=== PATIENT | male | born 1955 | race Caucasian/White ===

== ENCOUNTER 2020-05-30 23:07 | Inpatient (IN) | payer OTHER ==
[~2020-05-30] VITALS: Ht 185.4 cm; Wt 59.0 kg
[2020-05-30] MEDS ORDERED: PLEASE ENTER ALLERGIES MC SCH (23:30)
[2020-05-30] MEDS: MIDAZOLAM HCL 50 MG in SODIUM CHLORIDE 0.9% 40 ML IV PRN (23:35)
--- NOTE | 2020-05-30 23:42 | NUR ---
pt has hx of etoh abuse and was altereed and combative at [facility], [place] where the sedated pt with et tube and sent pt here. PT ON VENT AND WAS BEEN PUSHES OF KETAMIN PER TRANSPORT STAFF.
--- NOTE | 2020-05-30 23:51 | NUR ---
PT REPORT GIVEN TO HENNA ANTOINE
[2020-05-30 23:55] LABS: MEAN CORPUSCULAR HEMOGLOBIN 33.7 pg (27.5-34.5); MEAN CORPUSCULAR HGB CONC 34.3 g/dL (33.2-36.2); MEAN PLATELET VOLUME 10.6 fL (7.4-10.4); PLATELET COUNT 153 x10^3/uL (130-400); RED BLOOD COUNT 3.84 x10^6/uL (4.38-5.82)
--- NOTE | 2020-05-30 23:59 | NUR ---
Pt remains, sedated, intubated, labs drawn and sent, hall draining, pt has exisiting oral gastric tube, clamped. Sinus tach no ectopy will continue to monitor.
--- NOTE | 2020-05-31 00:02 | NUR ---
MAP greater 60, semi t bird. Dr lacey made aware of b/p trends.
[2020-05-31 00:05] LABS: ALANINE AMINOTRANSFERASE 63 U/L (12-78); ALBUMIN 1.8 g/dL (3.4-5.0); ANION GAP 10 mmol/L (5-15); CALCIUM 7.1 mg/dL (8.5-10.1); CHLORIDE 104 mmol/L (98-107)
[2020-05-31 00:09] LABS: ALKALINE PHOSPHATASE 257 U/L (45-117); BILIRUBIN,TOTAL 0.9 mg/dL (0.2-1.0); CREATININE 0.71 mg/dL (0.7-1.3); TOTAL PROTEIN 5.3 g/dL (6.4-8.2)
--- NOTE | 2020-05-31 00:10 | NUR ---
daughter's phone number: [phone]
--- NOTE | 2020-05-31 00:15 | NUR ---
Lab called trop report 2.[address] lacey.
[2020-05-31 00:19] LABS: MD YES
[2020-05-31 00:23] LABS: BAND#(MANUAL) 1.92 x10^3/uL; BANDS%(MANUAL) 13 % (0-7); LYMPH#(MANUAL) 0.59 x10^3/uL (1-3.4); LYMPHS% (MANUAL) 4 % (22-44); MONOS#(MANUAL) 1.63 x10^3/uL (0.3-2.7); MONOS% (MANUAL) 11 % (2-9); REACTIVE LYMPHS # (MANUAL) 0.15 x10^3/uL (0-0); REACTIVE LYMPHS % (MANUAL) 1 % (0-0); SEG#(MANUAL) 10.51 x10^3/uL (1.8-6.8); SEGS% (MANUAL) 71 % (42-75)
[2020-05-31 00:25] LABS: PMNS WITH VACUOLES 1+
[2020-05-31 00:27] LABS: <PLATELET ESTIMATE> ADEQUATE; LARGE PLATELETS 1+
[2020-05-31] MEDS ORDERED: HEPARIN 25,000 UNITS/250ML PMX 250 ML ONE (00:30)
[2020-05-31] MEDS ORDERED: HEPARIN 5,000 UNITS/ML, 1ML IV ONE (00:30)
[2020-05-31] MEDS ORDERED: HEPARIN 25,000 UNITS/250ML PMX 250 ML IV PRN (00:30)
[2020-05-31] MEDS ORDERED: HEPARIN 5,000 UNITS/ML, 1ML ONE (00:30)
[2020-05-31] MEDS ORDERED: OMNIPAQUE 350 MG/ML, 75ML BOTTLE ONE (00:55)
[2020-05-31] MEDS ORDERED: NOREPINEPHRINE 8 MG in SODIUM CHLORIDE 0.9% 242 ML IV PRN ×2 (01:00→02:00)
[2020-05-31] MEDS ORDERED: PIPERACILLIN/TAZO/PMX 3.375GM 50 ML IVPB ONE (01:00)
[2020-05-31] MEDS ORDERED: VANCOMYCIN PER PHARMACY MC ONE (01:00)
[2020-05-31] MEDS ORDERED: VANCOMYCIN 1,500 MG in SODIUM CHLORIDE 0.9% 250 ML IV ONE (01:00)
[2020-05-31] MEDS: MIDAZOLAM HCL 50 MG in SODIUM CHLORIDE 0.9% 40 ML IV PRN ×3 (01:41→21:22)
--- NOTE | 2020-05-31 01:52 | NUR ---
0100: To CT with RT for CTA, bolus in CT with 2mg versed for movement. 0115: back from CT, pt b/p remains MAP around 55, placement of IJ CL by dr lacey. 0130: Pressors started to maintain MAP greater 65
[2020-05-31] MEDS ORDERED: VANCOMYCIN PER PHARMACY MC PRN (02:00)
[2020-05-31] MEDS ORDERED: THIAMINE 200 MG in SODIUM CHLORIDE 0.9% 50 ML IV ONE (02:00)
[2020-05-31] MEDS ORDERED: PHARMACY MAY ADJ FOR RENAL FX MC PRN (02:00)
[2020-05-31] MEDS ORDERED: LACTATED RINGERS 1,000 ML IV SCH ×2 (02:00→20:00)
--- NOTE | 2020-05-31 02:09 | NUR ---
TASK RN: PT RESTING ON GURNEY TOLERATING SEDATION WELL, DRIPS INFUSING WITHOUT DIFFICULTY AT THIS TIME, ROBISON CONTINUES TO DRAIN DARK URINE.
[2020-05-31 02:22] LABS: INTERNATIONAL NORMALIZED RATIO 1.21 (0.93-1.1); PROTHROMBIN TIME 12.8 Seconds (9.6-11.5)
--- NOTE | 2020-05-31 02:45 | NUR ---
OGT to suction, coffee ground dc from tube, placed to int suction.
--- NOTE | 2020-05-31 02:55 | NUR ---
Back from break, OGT with coffee ground emesis, call to dr stout will stop heparin. Report to HENNA [place] pt and all belongings tx to CCU.
[2020-05-31] MEDS ORDERED: PHARMACY MAY ADJ FOR RENAL FX MC SCH (03:00)
[2020-05-31] MEDS ORDERED: ONDANSETRON 2MG/ML, 2ML IV PRN (03:00)
[2020-05-31] MEDS ORDERED: PANTOPRAZOLE 80 MG in SODIUM CHLORIDE 0.9% 50 ML IV ONE (03:00)
[2020-05-31] MEDS ORDERED: FAMOTIDINE 20 MG/2 ML IV SCH (03:00)
[2020-05-31] MEDS ORDERED: LIDOCAINE-MPF 1%, 2ML ENDO PRN (03:00)
[2020-05-31] MEDS ORDERED: FENTANYL PF 100 MCG/2ML IVPush PRN (03:00)
[2020-05-31] MEDS ORDERED: PHARMACOKINETIC CONSULTATION MC ONE (03:30)
[2020-05-31] MEDS ORDERED: PHARMACOKINETIC MONITORING MC PRN (03:30)
[2020-05-31] MEDS: PANTOPRAZOLE 80 MG in SODIUM CHLORIDE 0.9% 100 ML IV SCH ×3 (03:44→23:26)
[2020-05-31] MEDS: PIPERACILLIN/TAZO/PMX 3.375GM 50 ML IV SCH ×4 (03:47→20:01)
[2020-05-31 05:14] LABS: ANION GAP 6 mmol/L (5-15); CALCIUM 7.3 mg/dL (8.5-10.1); CHLORIDE 107 mmol/L (98-107)
[2020-05-31 05:16] LABS: MEAN CORPUSCULAR HEMOGLOBIN 33.2 pg (27.5-34.5); MEAN CORPUSCULAR HGB CONC 33.2 g/dL (33.2-36.2); MEAN PLATELET VOLUME 10.7 fL (7.4-10.4); PLATELET COUNT 167 x10^3/uL (130-400); RED BLOOD COUNT 3.79 x10^6/uL (4.38-5.82); RED CELL DISTRIBUTION WIDTH 13.2 % (9.4-14.8)
[2020-05-31 05:19] LABS: CHOL/HDL RATIO 3.9; CHOLESTEROL, TOTAL 58 mg/dL (140-239); CREATININE 0.63 mg/dL (0.7-1.3); HDL CHOL % 26 % (26-37); HDL CHOLESTEROL (DIRECT) 15 mg/dL (40-60); LDL CHOLESTEROL,CALCULATED 16 mg/dL (54-169); LDL/HDL RATIO 1.1 (0.5-3.0); TRIGLYCERIDES 137 mg/dL (50-200); VLDL CHOLESTEROL 27 mg/dL (0-25)
[2020-05-31 05:56] LABS: MD YES
[2020-05-31 05:57] LABS: BAND#(MANUAL) 1.67 x10^3/uL; BANDS%(MANUAL) 11 % (0-7); LYMPH#(MANUAL) 0.61 x10^3/uL (1-3.4); LYMPHS% (MANUAL) 4 % (22-44); MONOS#(MANUAL) 1.22 x10^3/uL (0.3-2.7); MONOS% (MANUAL) 8 % (2-9); SEGS% (MANUAL) 77 % (42-75)
[2020-05-31 05:58] LABS: <PLATELET ESTIMATE> ADEQUATE; LARGE PLATELETS 1+
[2020-05-31 07:44] LABS: MICROSCOPIC INDICATED
[2020-05-31 07:51] LABS: AMPHETAMINE SCREEN, URINE Negative (Negative); BARBITURATE SCREEN, URINE Negative (Negative); BENZODIAZEPINE SCREEN, URINE Positive (Negative); CANNABINOID SCREEN, URINE Negative (Negative); COCAINE SCREEN, URINE Negative (Negative); METHADONE SCREEN, URINE Negative (Negative); OPIATE SCREEN, URINE Negative (Negative)
[2020-05-31] MEDS: THIAMINE 100MG TABLET PO/NG SCH (07:51)
[2020-05-31] MEDS ORDERED: ACETAMINOPHEN 650 MG/20.3 ML UDC ONE (10:21)
--- NOTE | 2020-05-31 13:07 | NUR ---
If tube feed recommendation needed: recommend Vital AF goal:55 ml/hr off propofol.rec. slow advancement Addendum: 05/31/20 at [address] Amended: Links added.
[2020-05-31] MEDS ORDERED: VANCOMYCIN 1,200 MG in SODIUM CHLORIDE 0.9% 250 ML IV SCH (14:00)
[2020-05-31] MEDS ORDERED: LORazepam 2 MG/ML, 1ML ONE (16:53)
[2020-05-31] MEDS ORDERED: LORazepam 2 MG/ML, 1ML IVPush ONE (17:00)
[2020-05-31] MEDS: PROPOFOL 100 ML IV PRN (17:19)
[2020-05-31] MEDS: ACETAMINOPHEN 325 MG TABLET PO PRN (21:08)
[2020-06-01] MEDS ORDERED: LACTATED RINGERS 1,000 ML IV SCH (02:00)
[2020-06-01] MEDS: PIPERACILLIN/TAZO/PMX 3.375GM 50 ML IV SCH ×4 (02:16→19:54)
[2020-06-01 04:23] LABS: MEAN CORPUSCULAR HEMOGLOBIN 33.2 pg (27.5-34.5); MEAN CORPUSCULAR HGB CONC 33.8 g/dL (33.2-36.2); MEAN PLATELET VOLUME 10.6 fL (7.4-10.4); PLATELET COUNT 148 x10^3/uL (130-400); RED BLOOD COUNT 3.73 x10^6/uL (4.38-5.82); RED CELL DISTRIBUTION WIDTH 13.5 % (9.4-14.8)
[2020-06-01 04:26] LABS: INTERNATIONAL NORMALIZED RATIO 1.16 (0.93-1.1); PROTHROMBIN TIME 12.3 Seconds (9.6-11.5)
[2020-06-01 04:36] LABS: ANION GAP 7 mmol/L (5-15); CALCIUM 7.7 mg/dL (8.5-10.1); CHLORIDE 107 mmol/L (98-107); CHOLESTEROL, TOTAL 68 mg/dL (140-239); CREATININE 0.47 mg/dL (0.7-1.3)
[2020-06-01 04:38] LABS: CHOL/HDL RATIO 5.7; HDL CHOL % 18 % (26-37); HDL CHOLESTEROL (DIRECT) 12 mg/dL (40-60); LDL CHOLESTEROL,CALCULATED 27 mg/dL (54-169); LDL/HDL RATIO 2.3 (0.5-3.0); TRIGLYCERIDES 146 mg/dL (50-200); VLDL CHOLESTEROL 29 mg/dL (0-25)
[2020-06-01 04:59] LABS: MD YES
[2020-06-01 05:02] LABS: BAND#(MANUAL) 1.13 x10^3/uL; BANDS%(MANUAL) 13 % (0-7); BASOS#(MANUAL) 0.09 x10^3/uL (0-0.1); BASOS% (MANUAL) 1 % (0-1); LYMPH#(MANUAL) 0.44 x10^3/uL (1-3.4); LYMPHS% (MANUAL) 5 % (22-44); MONOS#(MANUAL) 1.04 x10^3/uL (0.3-2.7); MONOS% (MANUAL) 12 % (2-9); SEGS% (MANUAL) 69 % (42-75)
[2020-06-01 05:05] LABS: <PLATELET ESTIMATE> ADEQUATE; LARGE PLATELETS 1+; PMNS WITH VACUOLES 1+
[2020-06-01] MEDS: MIDAZOLAM HCL 50 MG in SODIUM CHLORIDE 0.9% 40 ML IV PRN ×2 (06:22→18:13)
[2020-06-01] MEDS: POTASSIUM CHLORIDE 10% 40 MEQ/30 ML UDC PO SCH ×2 (07:54→19:54)
[2020-06-01] MEDS: THIAMINE 100MG TABLET PO/NG SCH (07:54)
[2020-06-01] MEDS: PANTOPRAZOLE 80 MG in SODIUM CHLORIDE 0.9% 100 ML IV SCH (09:29)
[2020-06-01] MEDS ORDERED: ENOXAPARIN 40 MG/0.4 ML SQ SCH (10:00)
[2020-06-01] MEDS: PROPOFOL 100 ML IV PRN (13:47)
[2020-06-01] MEDS: ACETAMINOPHEN 325 MG TABLET PO PRN ×2 (13:47→23:57)
[2020-06-01] MEDS ORDERED: PANTOPRAZOLE 40 MG IV IVPush SCH (21:00)
[2020-06-02] MEDS: PROPOFOL 100 ML IV PRN (01:45)
[2020-06-02] MEDS: PIPERACILLIN/TAZO/PMX 3.375GM 50 ML IV SCH ×4 (03:12→20:48)
[2020-06-02 03:28] LABS: BASOPHILS % (AUTO) 1 % (0-1); EOSINOPHILS % (AUTO) 0 % (1-7); LYMPHOCYTES % (AUTO) 14 % (22-44); MEAN CORPUSCULAR HEMOGLOBIN 33.5 pg (27.5-34.5); MEAN CORPUSCULAR HGB CONC 34.3 g/dL (33.2-36.2); MEAN PLATELET VOLUME 9.6 fL (7.4-10.4); MONOCYTES % (AUTO) 7 % (2-9); NEUTROPHILS % (AUTO) 78 % (42-75); PLATELET COUNT 107 x10^3/uL (130-400); RED BLOOD COUNT 3.53 x10^6/uL (4.38-5.82); RED CELL DISTRIBUTION WIDTH 13.1 % (9.4-14.8)
[2020-06-02 03:37] LABS: ALANINE AMINOTRANSFERASE 35 U/L (12-78); ALBUMIN 1.4 g/dL (3.4-5.0); ANION GAP 4 mmol/L (5-15); CALCIUM 7.9 mg/dL (8.5-10.1); CHLORIDE 107 mmol/L (98-107)
[2020-06-02 03:40] LABS: ALKALINE PHOSPHATASE 158 U/L (45-117); BILIRUBIN,TOTAL 0.4 mg/dL (0.2-1.0); CREATININE 0.56 mg/dL (0.7-1.3)
[2020-06-02 04:01] LABS: MD SCAN
[2020-06-02 04:17] LABS: BILIRUBIN, DIRECT 0.2 mg/dL (0.1-0.2); BILIRUBIN,INDIRECT 0.2 mg/dL (0.0-2.0); BILIRUBIN,TOTAL 0.4 mg/dL (0.2-1.0)
[2020-06-02] MEDS: THIAMINE 100MG TABLET PO/NG SCH (07:49)
[2020-06-02] MEDS: PANTOPRAZOLE 40 MG IV IVPush SCH ×2 (07:49→19:30)
[2020-06-02] MEDS ORDERED: HEPARIN 5,000 UNITS/ML, 1ML IV ONE (09:00)
[2020-06-02] MEDS: HEPARIN 25,000 UNITS/250ML PMX 250 ML IV PRN (10:02)
[2020-06-02] MEDS: LORazepam 2 MG/ML, 1ML IVPush PRN ×2 (12:33→19:30)
[2020-06-02] MEDS: HEPARIN 5,000 UNITS/ML, 1ML IV PRN ×2 (13:42→19:30)
[2020-06-02] MEDS: ACETAMINOPHEN 325 MG TABLET PO PRN (14:44)
[2020-06-03] MEDS: LORazepam 2 MG/ML, 1ML IVPush PRN (02:48)
[2020-06-03] MEDS: PIPERACILLIN/TAZO/PMX 3.375GM 50 ML IV SCH ×4 (02:50→22:21)
[2020-06-03 03:56] LABS: BASOPHILS % (AUTO) 1 % (0-1); EOSINOPHILS % (AUTO) 1 % (1-7); LYMPHOCYTES % (AUTO) 14 % (22-44); MEAN CORPUSCULAR HEMOGLOBIN 33.7 pg (27.5-34.5); MEAN CORPUSCULAR HGB CONC 34.3 g/dL (33.2-36.2); MEAN PLATELET VOLUME 11.4 fL (7.4-10.4); MONOCYTES % (AUTO) 7 % (2-9); NEUTROPHILS % (AUTO) 78 % (42-75); PLATELET COUNT 108 x10^3/uL (130-400); RED BLOOD COUNT 3.16 x10^6/uL (4.38-5.82); RED CELL DISTRIBUTION WIDTH 13.2 % (9.4-14.8)
[2020-06-03 04:06] LABS: BILIRUBIN, DIRECT 0.3 mg/dL (0.1-0.2)
[2020-06-03 04:08] LABS: BILIRUBIN,INDIRECT 0.6 mg/dL (0.0-2.0); BILIRUBIN,TOTAL 0.9 mg/dL (0.2-1.0)
[2020-06-03 04:25] LABS: MD SCAN
[2020-06-03 05:42] LABS: ALBUMIN 1.4 g/dL (3.4-5.0); ANION GAP 5 mmol/L (5-15); CALCIUM 7.8 mg/dL (8.5-10.1); CHLORIDE 107 mmol/L (98-107)
[2020-06-03 05:47] LABS: ALANINE AMINOTRANSFERASE 30 U/L (12-78); ALKALINE PHOSPHATASE 188 U/L (45-117); BILIRUBIN,TOTAL 0.6 mg/dL (0.2-1.0); CREATININE 0.49 mg/dL (0.7-1.3)
[2020-06-03] MEDS: HEPARIN 5,000 UNITS/ML, 1ML IV PRN ×3 (09:35→21:57)
[2020-06-03] MEDS: HEPARIN 25,000 UNITS/250ML PMX 250 ML IV PRN (09:36)
[2020-06-03] MEDS: PANTOPRAZOLE 40 MG IV IVPush SCH ×2 (09:38→21:40)
[2020-06-03] MEDS: POTASSIUM CHLORIDE 10% 40 MEQ/30 ML UDC PO SCH ×2 (09:38→21:39)
[2020-06-03] MEDS: THIAMINE 100MG TABLET PO/NG SCH (09:38)
[2020-06-03 18:01] VITALS: BP 110/68
[2020-06-04 00:24] VITALS: BP 112/70
[2020-06-04] MEDS: LORazepam 2 MG/ML, 1ML IVPush PRN ×5 (01:26→20:19)
[2020-06-04] MEDS: PIPERACILLIN/TAZO/PMX 3.375GM 50 ML IV SCH ×4 (04:09→20:20)
[2020-06-04 04:47] LABS: BASOPHILS % (AUTO) 1 % (0-1); EOSINOPHILS % (AUTO) 1 % (1-7); LYMPHOCYTES % (AUTO) 15 % (22-44); MEAN CORPUSCULAR HEMOGLOBIN 33.3 pg (27.5-34.5); MEAN CORPUSCULAR HGB CONC 33.7 g/dL (33.2-36.2); MEAN PLATELET VOLUME 11.1 fL (7.4-10.4); MONOCYTES % (AUTO) 6 % (2-9); NEUTROPHILS % (AUTO) 77 % (42-75); PLATELET COUNT 100 x10^3/uL (130-400); RED BLOOD COUNT 3.23 x10^6/uL (4.38-5.82); RED CELL DISTRIBUTION WIDTH 13.3 % (9.4-14.8)
[2020-06-04 04:49] LABS: MD NO
[2020-06-04] MEDS: HEPARIN 5,000 UNITS/ML, 1ML IV PRN ×3 (05:28→23:21)
[2020-06-04] MEDS: HEPARIN 25,000 UNITS/250ML PMX 250 ML IV PRN ×2 (06:07→23:38)
[2020-06-04 06:25] VITALS: BP 116/73
[2020-06-04] MEDS: POTASSIUM CHLORIDE 20 MEQ TAB.ER.PRT PO SCH ×3 (08:00→18:10)
[2020-06-04] MEDS: THIAMINE 100MG TABLET PO/NG SCH ×2 (09:00→11:40)
[2020-06-04] MEDS: PANTOPRAZOLE 40 MG IV IVPush SCH ×2 (09:20→20:19)
[2020-06-04] MEDS ORDERED: ACETAMINOPHEN 650 MG/20.3 ML UDC ONE (11:41)
[2020-06-04] MEDS: ACETAMINOPHEN 325 MG TABLET PO PRN (11:42)
[2020-06-04 13:15] VITALS: BP 120/74
[2020-06-04 19:38] VITALS: BP 121/74
[2020-06-05] MEDS: LORazepam 2 MG/ML, 1ML IVPush PRN ×3 (00:28→22:18)
[2020-06-05 01:45] VITALS: BP 119/76
[2020-06-05] MEDS: PIPERACILLIN/TAZO/PMX 3.375GM 50 ML IV SCH (01:52)
[2020-06-05 06:15] LABS: BASOPHILS % (AUTO) 2 % (0-1); EOSINOPHILS % (AUTO) 2 % (1-7); LYMPHOCYTES % (AUTO) 18 % (22-44); MEAN CORPUSCULAR HEMOGLOBIN 33.5 pg (27.5-34.5); MEAN PLATELET VOLUME 10.8 fL (7.4-10.4); MONOCYTES % (AUTO) 6 % (2-9); NEUTROPHILS % (AUTO) 73 % (42-75); PLATELET COUNT 104 x10^3/uL (130-400); RED BLOOD COUNT 3.18 x10^6/uL (4.38-5.82); RED CELL DISTRIBUTION WIDTH 13.6 % (9.4-14.8)
[2020-06-05 07:00] VITALS: BP 149/81
[2020-06-05 07:10] LABS: MD SCAN
[2020-06-05] MEDS: THIAMINE 100MG TABLET PO/NG SCH (09:52)
[2020-06-05] MEDS: POTASSIUM CHLORIDE 20 MEQ TAB.ER.PRT PO SCH ×2 (09:52→17:59)
[2020-06-05] MEDS: PANTOPRAZOLE 40 MG IV IVPush SCH ×2 (09:52→21:12)
[2020-06-05 12:51] VITALS: BP 123/74
[2020-06-05 13:25] VITALS: BP 136/82
[2020-06-05] MEDS: HEPARIN 5,000 UNITS/ML, 1ML IV PRN ×2 (13:48→22:44)
[2020-06-05] MEDS: HEPARIN 25,000 UNITS/250ML PMX 250 ML IV PRN (14:23)
[2020-06-05 19:55] VITALS: BP 127/77
[2020-06-05] MEDS: LORazepam 2 MG/ML, 1ML IV PRN (22:53)
[2020-06-05] MEDS ORDERED: LORazepam 1MG TABLET PO PRN ×4 (23:00)
[2020-06-05] MEDS ORDERED: LORazepam 0.5MG TABLET PO PRN (23:00)
[2020-06-05] MEDS ORDERED: LORazepam 2 MG/ML, 1ML IV PRN ×2 (23:00)
[2020-06-06] MEDS: LORazepam 2 MG/ML, 1ML IV PRN ×4 (00:31→20:14)
[2020-06-06] MEDS: HEPARIN 25,000 UNITS/250ML PMX 250 ML IV PRN ×2 (04:48→18:29)
[2020-06-06 05:04] LABS: BASOPHILS % (AUTO) 1 % (0-1); EOSINOPHILS % (AUTO) 2 % (1-7); LYMPHOCYTES % (AUTO) 23 % (22-44); MEAN CORPUSCULAR HEMOGLOBIN 33.4 pg (27.5-34.5); MEAN PLATELET VOLUME 11.6 fL (7.4-10.4); MONOCYTES % (AUTO) 8 % (2-9); NEUTROPHILS % (AUTO) 66 % (42-75); PLATELET COUNT 112 x10^3/uL (130-400); RED BLOOD COUNT 3.36 x10^6/uL (4.38-5.82)
[2020-06-06 05:15] LABS: MD NO
[2020-06-06 07:24] VITALS: BP 134/69
[2020-06-06] MEDS: POTASSIUM CHLORIDE 20 MEQ TAB.ER.PRT PO SCH ×3 (08:00→17:22)
[2020-06-06] MEDS: THIAMINE 100MG TABLET PO/NG SCH (09:12)
[2020-06-06] MEDS: PANTOPRAZOLE 40 MG IV IVPush SCH (09:12)
[2020-06-06 14:07] VITALS: BP 131/80
[2020-06-06] MEDS: PANTOPRAZOLE 20MG TABLET PO SCH (18:29)
[2020-06-06 18:42] VITALS: BP 137/79
[2020-06-07] MEDS: LORazepam 2 MG/ML, 1ML IV PRN ×5 (01:11→21:14)
[2020-06-07 01:58] VITALS: BP 128/78
[2020-06-07] MEDS: PANTOPRAZOLE 20MG TABLET PO SCH ×2 (05:24→17:53)
[2020-06-07 05:30] LABS: ANION GAP 7 mmol/L (5-15); CALCIUM 8.1 mg/dL (8.5-10.1); CHLORIDE 108 mmol/L (98-107); CREATININE 0.41 mg/dL (0.7-1.3)
[2020-06-07] MEDS: HEPARIN 25,000 UNITS/250ML PMX 250 ML IV PRN (07:11)
[2020-06-07 07:30] VITALS: BP 139/81
[2020-06-07] MEDS: THIAMINE 100MG TABLET PO/NG SCH (09:04)
[2020-06-07] MEDS: POTASSIUM CHLORIDE 20 MEQ TAB.ER.PRT PO SCH (09:04)
[2020-06-07] MEDS: RIVAROXABAN 15 MG TABLET PO SCH ×2 (10:16→17:53)
[2020-06-07 12:25] VITALS: BP 130/81
[2020-06-07 12:26] VITALS: BP 95/59
[2020-06-07 18:08] LABS: CLOSTRIDIUM DIFFICILE ANTIGEN NEGATIVE; CLOSTRIDIUM DIFFICILE TOXIN NEGATIVE (Negative)
[2020-06-07] MEDS: ACETAMINOPHEN 325 MG TABLET PO PRN (19:53)
[2020-06-07 20:47] VITALS: BP 127/77
[2020-06-08 01:26] VITALS: BP 131/65
[2020-06-08] MEDS: LORazepam 2 MG/ML, 1ML IV PRN ×2 (03:31→08:54)
[2020-06-08 08:00] VITALS: BP 133/76
[2020-06-08 09:24] LABS: ANION GAP 7 mmol/L (5-15); CHLORIDE 108 mmol/L (98-107); CREATININE 0.58 mg/dL (0.7-1.3)
[2020-06-08 10:19] LABS: BASOPHILS % (AUTO) 1 % (0-1); EOSINOPHILS % (AUTO) 1 % (1-7); LYMPHOCYTES % (AUTO) 20 % (22-44); MEAN CORPUSCULAR HEMOGLOBIN 33.3 pg (27.5-34.5); MEAN CORPUSCULAR HGB CONC 34.1 g/dL (33.2-36.2); MEAN PLATELET VOLUME 10.7 fL (7.4-10.4); MONOCYTES % (AUTO) 8 % (2-9); NEUTROPHILS % (AUTO) 70 % (42-75); RED BLOOD COUNT 3.62 x10^6/uL (4.38-5.82); RED CELL DISTRIBUTION WIDTH 13.5 % (9.4-14.8)
[2020-06-08] MEDS: PANTOPRAZOLE 20MG TABLET PO SCH ×2 (10:28→20:51)
[2020-06-08] MEDS: RIVAROXABAN 15 MG TABLET PO SCH ×2 (10:28→17:16)
[2020-06-08] MEDS: THIAMINE 100MG TABLET PO/NG SCH (10:28)
[2020-06-08 11:05] LABS: PLATELET COUNT 185 x10^3/uL (130-400)
[2020-06-08 11:06] LABS: MD SCAN
[2020-06-08 19:38] VITALS: BP 118/73
[2020-06-08] MEDS: LACTULOSE 10 GM/15 ML UDC PO SCH (20:51)
[2020-06-09 01:46] VITALS: BP 137/80
[2020-06-09 06:48] VITALS: BP 115/71
[2020-06-09] MEDS: LACTULOSE 10 GM/15 ML UDC PO SCH (09:00)
[2020-06-09] MEDS: PANTOPRAZOLE 20MG TABLET PO SCH ×2 (09:02→21:39)
[2020-06-09] MEDS: RIVAROXABAN 15 MG TABLET PO SCH ×2 (11:37→17:59)
[2020-06-09] MEDS: THIAMINE 100MG TABLET PO/NG SCH (11:37)
[2020-06-09 13:27] VITALS: BP 136/71
[2020-06-09 18:51] VITALS: BP 131/78
[2020-06-10 02:46] VITALS: BP 126/75
[2020-06-10] MEDS: PANTOPRAZOLE 20MG TABLET PO SCH ×2 (07:30→18:19)
[2020-06-10 07:45] VITALS: BP 125/75
[2020-06-10] MEDS: THIAMINE 100MG TABLET PO/NG SCH (08:18)
[2020-06-10] MEDS: RIVAROXABAN 15 MG TABLET PO SCH ×2 (08:19→17:32)
[2020-06-10 12:18] VITALS: BP 105/67
[2020-06-10 20:17] VITALS: BP 93/60
[2020-06-11 02:18] VITALS: BP 119/73
[2020-06-11] MEDS: PANTOPRAZOLE 20MG TABLET PO SCH ×2 (06:39→17:49)
[2020-06-11 07:15] VITALS: BP 96/61
[2020-06-11] MEDS ORDERED: REGADENOSON 0.4 MG/5 ML SYRINGE ONE (09:00)
[2020-06-11] MEDS: THIAMINE 100MG TABLET PO/NG SCH (10:12)
[2020-06-11] MEDS: RIVAROXABAN 15 MG TABLET PO SCH ×2 (10:12→17:49)
[2020-06-11 13:07] VITALS: BP 102/66
[2020-06-11 19:01] VITALS: BP 153/69
[2020-06-12 00:30] VITALS: BP 102/61
[2020-06-12] MEDS: PANTOPRAZOLE 20MG TABLET PO SCH ×2 (06:23→17:40)
[2020-06-12 06:30] VITALS: BP 117/77
[2020-06-12] MEDS: RIVAROXABAN 15 MG TABLET PO SCH ×2 (07:59→17:40)
[2020-06-12 13:10] VITALS: BP 97/65
[2020-06-12 19:09] VITALS: BP 93/59
[2020-06-13 02:37] VITALS: BP 92/59
[2020-06-13] MEDS: PANTOPRAZOLE 20MG TABLET PO SCH ×2 (06:51→18:38)
[2020-06-13 07:27] VITALS: BP 103/64
[2020-06-13] MEDS: RIVAROXABAN 15 MG TABLET PO SCH ×2 (09:14→18:38)
[2020-06-13 13:10] VITALS: BP 98/66
[2020-06-13 19:40] VITALS: BP 93/51
[2020-06-14 01:35] VITALS: BP 99/63
[2020-06-14 05:35] LABS: CREATININE 0.72 mg/dL (0.7-1.3)
[2020-06-14] MEDS: PANTOPRAZOLE 20MG TABLET PO SCH ×2 (06:04→17:15)
[2020-06-14 07:25] VITALS: BP 115/74
[2020-06-14] MEDS: RIVAROXABAN 15 MG TABLET PO SCH ×2 (08:16→16:53)
--- NOTE | 2020-06-14 09:25 | NUR ---
NURSING ACTIVITY SHEET 1. Pt up in chair 2-3x's a day. Addendum: 06/14/20 at 1140 by JERROD CORBETT PTA Amended: Links added.
[2020-06-14 13:33] VITALS: BP 107/70
[2020-06-14 18:34] VITALS: BP 108/75
[2020-06-14] MEDS: ACETAMINOPHEN 325 MG TABLET PO PRN ×2 (18:35→22:49)
[2020-06-14 20:09] VITALS: BP 101/62
[2020-06-15 01:30] VITALS: BP 105/62
[2020-06-15] MEDS: PANTOPRAZOLE 20MG TABLET PO SCH ×2 (05:36→16:53)
[2020-06-15 06:49] VITALS: BP 104/65
[2020-06-15] MEDS: RIVAROXABAN 15 MG TABLET PO SCH ×2 (08:00→16:53)
[2020-06-15] MEDS: ACETAMINOPHEN 325 MG TABLET PO PRN ×3 (08:03→17:44)
[2020-06-15 08:35] LABS: BASOPHILS % (AUTO) 1 % (0-1); EOSINOPHILS % (AUTO) 1 % (1-7); LYMPHOCYTES % (AUTO) 5 % (22-44); MEAN CORPUSCULAR HEMOGLOBIN 33.3 pg (27.5-34.5); MEAN CORPUSCULAR HGB CONC 34.2 g/dL (33.2-36.2); MEAN PLATELET VOLUME 9.9 fL (7.4-10.4); MONOCYTES % (AUTO) 6 % (2-9); NEUTROPHILS % (AUTO) 87 % (42-75); PLATELET COUNT 225 x10^3/uL (130-400); RED BLOOD COUNT 3.73 x10^6/uL (4.38-5.82); RED CELL DISTRIBUTION WIDTH 14.1 % (9.4-14.8)
[2020-06-15 09:07] LABS: MICROSCOPIC INDICATED
[2020-06-15 09:40] LABS: MD SCAN
[2020-06-15] MEDS: CEFTRIAXONE PMX 1GM/50ML 50 ML IV SCH (11:29)
[2020-06-15 12:45] VITALS: BP 116/67
--- NOTE | 2020-06-15 13:35 | NUR ---
Nursing Activity Sheet reviewed with RN and posted on wall. Activity: 1. pt to be up in chair 2-3x's a day. Addendum: 06/15/20 at 1513 by JERROD CORBETT PTA Amended: Links added.
[2020-06-15 19:00] VITALS: BP 109/63
[2020-06-16] MEDS: CEFTRIAXONE PMX 1GM/50ML 50 ML IV SCH ×3 (00:21→23:17)
[2020-06-16 01:00] VITALS: BP 124/63
[2020-06-16] MEDS: ACETAMINOPHEN 325 MG TABLET PO PRN (04:47)
[2020-06-16] MEDS: PANTOPRAZOLE 20MG TABLET PO SCH ×2 (04:48→16:26)
[2020-06-16] MEDS: RIVAROXABAN 15 MG TABLET PO SCH ×2 (07:35→16:26)
[2020-06-16 07:44] VITALS: BP 91/51
[2020-06-16 10:34] LABS: BASOPHILS % (AUTO) 1 % (0-1); EOSINOPHILS % (AUTO) 0 % (1-7); LYMPHOCYTES % (AUTO) 11 % (22-44); MD NO; MEAN CORPUSCULAR HEMOGLOBIN 33.5 pg (27.5-34.5); MEAN PLATELET VOLUME 10.1 fL (7.4-10.4); MONOCYTES % (AUTO) 9 % (2-9); NEUTROPHILS % (AUTO) 79 % (42-75); PLATELET COUNT 193 x10^3/uL (130-400); RED BLOOD COUNT 3.67 x10^6/uL (4.38-5.82); RED CELL DISTRIBUTION WIDTH 13.7 % (9.4-14.8)
[2020-06-16 15:03] VITALS: BP 125/72
[2020-06-16 19:58] VITALS: BP 111/70
[2020-06-17 01:09] VITALS: BP 95/58
[2020-06-17] MEDS: PANTOPRAZOLE 20MG TABLET PO SCH ×2 (06:16→17:05)
[2020-06-17 07:45] VITALS: BP 95/60
[2020-06-17] MEDS: RIVAROXABAN 15 MG TABLET PO SCH ×2 (08:40→17:05)
[2020-06-17] MEDS: CEFTRIAXONE PMX 1GM/50ML 50 ML IV SCH ×2 (11:36→23:23)
[2020-06-17 13:46] VITALS: BP 103/59
[2020-06-17 18:19] VITALS: BP 109/65
[2020-06-18] VITALS: BP 105/64
[2020-06-18 05:43] LABS: CALCIUM 9.5 mg/dL (8.5-10.1); CHLORIDE 99 mmol/L (98-107)
[2020-06-18 05:49] LABS: ALANINE AMINOTRANSFERASE 62 U/L (12-78); ALBUMIN 2.4 g/dL (3.4-5.0); ALKALINE PHOSPHATASE 235 U/L (45-117); ANION GAP 7 mmol/L (5-15); BILIRUBIN,TOTAL 0.4 mg/dL (0.2-1.0); CREATININE 0.55 mg/dL (0.7-1.3); TOTAL PROTEIN 6.7 g/dL (6.4-8.2)
[2020-06-18] MEDS: PANTOPRAZOLE 20MG TABLET PO SCH ×2 (05:50→16:59)
[2020-06-18] MEDS: RIVAROXABAN 15 MG TABLET PO SCH ×2 (07:33→16:59)
[2020-06-18 07:34] VITALS: BP 93/54
[2020-06-18] MEDS: CEFTRIAXONE PMX 1GM/50ML 50 ML IV SCH ×2 (11:10→23:11)
[2020-06-18 11:57] LABS: MICROSCOPIC INDICATED
[2020-06-18 12:31] VITALS: BP 97/64
[2020-06-18 18:37] VITALS: BP 125/83
[2020-06-18 18:44] VITALS: BP 108/66
[2020-06-19 00:02] VITALS: BP 104/67
[2020-06-19] MEDS: PANTOPRAZOLE 20MG TABLET PO SCH ×2 (05:15→18:01)
[2020-06-19 07:26] VITALS: BP 111/72
[2020-06-19] MEDS: RIVAROXABAN 15 MG TABLET PO SCH ×2 (07:45→17:03)
[2020-06-19] MEDS: CEFTRIAXONE PMX 1GM/50ML 50 ML IV SCH (10:53)
[2020-06-19 12:21] VITALS: BP 99/65
[2020-06-19 19:37] VITALS: BP 112/71
[2020-06-20 01:08] VITALS: BP 112/72
[2020-06-20] MEDS: PANTOPRAZOLE 20MG TABLET PO SCH (05:37)
[2020-06-20 06:45] VITALS: BP 103/70
[2020-06-20] MEDS: RIVAROXABAN 15 MG TABLET PO SCH ×2 (08:05→18:12)
[2020-06-20 12:33] VITALS: BP 110/72
[2020-06-20 19:34] VITALS: BP 113/70
[2020-06-21 01:23] VITALS: BP 117/73
[2020-06-21 06:57] VITALS: BP 105/66
[2020-06-21] MEDS: PANTOPRAZOLE 20MG TABLET PO SCH (08:02)
[2020-06-21] MEDS: RIVAROXABAN 15 MG TABLET PO SCH ×2 (08:02→16:57)
[2020-06-21 12:36] VITALS: BP 108/64
[2020-06-21 19:26] VITALS: BP 102/64
[2020-06-22 02:24] VITALS: BP 105/66
[2020-06-22 07:15] VITALS: BP 108/70
[2020-06-22] MEDS: PANTOPRAZOLE 20MG TABLET PO SCH (09:04)
[2020-06-22] MEDS: RIVAROXABAN 15 MG TABLET PO SCH ×2 (09:04→15:54)
[2020-06-22 13:46] VITALS: BP 103/69
[2020-06-22 18:52] VITALS: BP 118/74
[2020-06-23 00:57] VITALS: BP 106/69
[2020-06-23 08:05] VITALS: BP 106/69
[2020-06-23] MEDS: PANTOPRAZOLE 20MG TABLET PO SCH (08:38)
[2020-06-23] MEDS: RIVAROXABAN 15 MG TABLET PO SCH ×2 (08:38→17:08)
[2020-06-23 13:09] VITALS: BP 107/70
[2020-06-23 19:42] VITALS: BP 104/65
[2020-06-24 00:23] VITALS: BP 111/70
[2020-06-24 08:00] VITALS: BP 106/68
[2020-06-24] MEDS: PANTOPRAZOLE 20MG TABLET PO SCH (10:38)
[2020-06-24] MEDS: RIVAROXABAN 15 MG TABLET PO SCH ×2 (10:38→17:46)
[2020-06-24 15:27] VITALS: BP 118/70
[2020-06-24 20:01] VITALS: BP 113/73
[2020-06-25 03:28] VITALS: BP 116/71
[2020-06-25 05:19] LABS: BASOPHILS % (AUTO) 1 % (0-1); EOSINOPHILS % (AUTO) 2 % (1-7); LYMPHOCYTES % (AUTO) 27 % (22-44); MEAN CORPUSCULAR HEMOGLOBIN 32.8 pg (27.5-34.5); MEAN CORPUSCULAR HGB CONC 33.6 g/dL (33.2-36.2); MEAN PLATELET VOLUME 9.3 fL (7.4-10.4); MONOCYTES % (AUTO) 8 % (2-9); NEUTROPHILS % (AUTO) 61 % (42-75); PLATELET COUNT 236 x10^3/uL (130-400); RED BLOOD COUNT 3.65 x10^6/uL (4.38-5.82); RED CELL DISTRIBUTION WIDTH 14.2 % (9.4-14.8)
[2020-06-25 05:23] LABS: MD NO
[2020-06-25 05:25] LABS: ALBUMIN 2.7 g/dL (3.4-5.0); ANION GAP 4 mmol/L (5-15); CALCIUM 9.3 mg/dL (8.5-10.1); CHLORIDE 104 mmol/L (98-107)
[2020-06-25 05:30] LABS: ALANINE AMINOTRANSFERASE 39 U/L (12-78); ALKALINE PHOSPHATASE 119 U/L (45-117); BILIRUBIN,TOTAL 0.3 mg/dL (0.2-1.0); CREATININE 0.66 mg/dL (0.7-1.3); TOTAL PROTEIN 6.6 g/dL (6.4-8.2)
[2020-06-25] MEDS: RIVAROXABAN 15 MG TABLET PO SCH ×2 (08:35→17:08)
[2020-06-25] MEDS: PANTOPRAZOLE 20MG TABLET PO SCH (08:35)
[2020-06-25 08:52] VITALS: BP 102/73
[2020-06-25 15:37] VITALS: BP 106/70
[2020-06-25 19:32] VITALS: BP 109/71
[2020-06-25 19:40] VITALS: BP 105/66
[2020-06-26 02:02] VITALS: BP 101/62
[2020-06-26 06:34] VITALS: BP 103/61
[2020-06-26] MEDS: PANTOPRAZOLE 20MG TABLET PO SCH (08:17)
[2020-06-26] MEDS: RIVAROXABAN 15 MG TABLET PO SCH ×2 (08:17→16:50)
[2020-06-26 13:40] VITALS: BP 106/72
[2020-06-26 19:46] VITALS: BP 121/67
[2020-06-27 01:06] VITALS: BP 112/71
[2020-06-27 06:59] VITALS: BP 114/72
[2020-06-27] MEDS: RIVAROXABAN 15 MG TABLET PO SCH ×2 (08:30→16:35)
[2020-06-27] MEDS: PANTOPRAZOLE 20MG TABLET PO SCH (08:30)
[2020-06-27 14:22] VITALS: BP 111/67
[2020-06-27 21:00] VITALS: BP 105/72
[2020-06-28 01:08] VITALS: BP 104/68
[2020-06-28 07:06] VITALS: BP 112/73
[2020-06-28] MEDS: PANTOPRAZOLE 20MG TABLET PO SCH (08:20)
[2020-06-28 12:01] VITALS: BP 105/67
[2020-06-28] MEDS ORDERED: RIVAROXABAN 20 MG TABLET PO SCH (17:00)
[2020-06-28] MEDS ORDERED: APIX5TAB PO (17:46)
[2020-06-28] MEDS ORDERED: PANT20TA4 PO (17:46)
[2020-06-28 20:00] VITALS: BP 120/77
[2020-06-29 00:15] VITALS: BP 106/63
[2020-06-29 05:21] LABS: BASOPHILS % (AUTO) 1 % (0-1); EOSINOPHILS % (AUTO) 1 % (1-7); LYMPHOCYTES % (AUTO) 24 % (22-44); MEAN CORPUSCULAR HEMOGLOBIN 32.6 pg (27.5-34.5); MEAN CORPUSCULAR HGB CONC 33.5 g/dL (33.2-36.2); MEAN PLATELET VOLUME 9.8 fL (7.4-10.4); MONOCYTES % (AUTO) 7 % (2-9); NEUTROPHILS % (AUTO) 66 % (42-75); PLATELET COUNT 165 x10^3/uL (130-400); RED BLOOD COUNT 3.77 x10^6/uL (4.38-5.82); RED CELL DISTRIBUTION WIDTH 14.2 % (9.4-14.8)
[2020-06-29 05:25] LABS: ALANINE AMINOTRANSFERASE 36 U/L (12-78); ALBUMIN 2.8 g/dL (3.4-5.0); ANION GAP 4 mmol/L (5-15); CALCIUM 8.9 mg/dL (8.5-10.1); CHLORIDE 105 mmol/L (98-107)
[2020-06-29 05:27] LABS: ALKALINE PHOSPHATASE 105 U/L (45-117); BILIRUBIN,TOTAL 0.3 mg/dL (0.2-1.0); TOTAL PROTEIN 6.6 g/dL (6.4-8.2)
[2020-06-29 06:33] VITALS: BP 105/65
[2020-06-29 07:08] LABS: MD NO
[2020-06-29] MEDS ORDERED: APIXABAN 5 MG TABLET PO SCH (09:00)
[2020-06-29] MEDS: PANTOPRAZOLE 20MG TABLET PO SCH (09:46)
== END 2020-06-29 12:28 | disposition home or self-care (01) | DRG 871 ==
LOC: ED 05-31 00:04 → EDIP 05-31 01:38 → CCU 05-31 03:11 → 4NE 06-03 17:54 → 3N 06-17 13:57
PROVIDERS: ADMIT Family Medicine; ATTEND Internal Medicine
PROC: 0BH17EZ Insertion of Endotracheal Airway into Trachea, Via Natural or Artificial Opening (ICD-10-PCS; principal; 2020-05-31)
PROC: 5A1945Z Respiratory Ventilation, 24-96 Consecutive Hours (ICD-10-PCS; 2020-05-31)
PROC: 0T9B70Z Drainage of Bladder with Drainage Device, Via Natural or Artificial Opening (ICD-10-PCS; 2020-05-31)
PROC: 02HV33Z Insertion of Infusion Device into Superior Vena Cava, Percutaneous Approach (ICD-10-PCS; 2020-05-31)
PROC: B548ZZA Ultrasonography of Superior Vena Cava, Guidance (ICD-10-PCS; 2020-05-31)
DX: A41.9 Sepsis, unspecified organism (principal); R65.21 Severe sepsis with septic shock; I21.4 Non-ST elevation (NSTEMI) myocardial infarction; G93.41 Metabolic encephalopathy; I26.99 Other pulmonary embolism without acute cor pulmonale; J96.01 Acute respiratory failure with hypoxia; E43 Unspecified severe protein-calorie malnutrition; J69.0 Pneumonitis due to inhalation of food and vomit; D62 Acute posthemorrhagic anemia; E87.1 Hypo-osmolality and hyponatremia; F10.231 Alcohol dependence with withdrawal delirium; E51.2 Wernicke's encephalopathy; E72.20 Disorder of urea cycle metabolism, unspecified; N39.0 Urinary tract infection, site not specified; Z68.1 Body mass index [BMI] 19.9 or less, adult; E86.1 Hypovolemia; K81.9 Cholecystitis, unspecified; Z20.822 Contact with and (suspected) exposure to COVID-19; E87.8 Other disorders of electrolyte and fluid balance, not elsewhere classified; I45.10 Unspecified right bundle-branch block; J43.9 Emphysema, unspecified; Z79.01 Long term (current) use of anticoagulants; Z87.891 Personal history of nicotine dependence
CPT/HCPCS: 36415; 36556; 36600; 70450; 71045; 71275; 76700; 78452; 80048; 80053; 80061; 80307; 80320; 81001; 82140; 82247; 82248; 82533; 82565; 82803; 83605; 83690; 83735; 83880; 84100; 84145; 84478; 84484; 85014; 85018; 85025; 85520; 85610; 87040; 87070; 87081; 87086; 87205; 87324; 93005; 93017; 93306; 93970; 94002; 94003; 99291; G0378; J0696; J1644; J1650; J2250; J2405; J2543; J2704; J2785; J3370; J3411; Q9967; 92523-GN; A9502; C9113; G0480; J2060; J7050; J7120